=== PATIENT | male | born 1985 | race Two or more races ===

== ENCOUNTER 2017-06-20 21:04 | Emergency (ER) | payer SELFPAY ==
[2017-06-20] MEDS ORDERED: OXYCODONE-ACETAMINOPHEN 5-325 MG TABLET PO ONE (22:31)
[2017-06-20] MEDS ORDERED: ONDANSETRON 4 MG TAB.RAPDIS PO ONE (22:32)
[2017-06-20] MEDS ORDERED: LIDOCAINE 1%/EPINEPHRINE INJ 20 ML VIAL INJ ONE (22:32)
--- NOTE | 2017-06-20 23:06 | RADIOLOGY REPORT (SQ) ---
EXAM DESCRIPTION: HAND LEFT 3 VIEWS CLINICAL HISTORY: 32 years Male, deep laceration/puncture COMPARISON: None. Findings: Soft tissue swelling/injury. No radiopaque foreign body. Bones, joints, and soft tissues of the HAND LEFT 3 VIEWS appear otherwise intact. IMPRESSION: Swelling.
--- NOTE | 2017-06-21 00:26 | ER Document Report ---
ED Wound - General Chief Complaint: Laceration Stated Complaint: LACERATION LEFT HAND Time Seen by Provider: 06/20/17 22:11 Notes: Patient is a 32-year-old male who presents the emergency department this evening with complaints of lacerations to his left hand. Patient reports that he was trying to use scissors when the scissors slipped and stabbed/lacerated his hand. There are 2 lacerations located on the palmar surface of the left hand. There is no active bleeding. Patient reports that his last tetanus shot was in 2017. Patient denies any past medical history. TRAVEL OUTSIDE OF THE [place] IN LAST 30 DAYS: No - Related Data Allergies/Adverse Reactions: No Known Allergies Allergy (Unverified 06/20/17 21:06) Past Medical History - General Information source: Patient - Social History Smoking Status: Never Smoker Frequency of alcohol use: None Drug Abuse: None Family History: Reviewed & Not Pertinent Patient has suicidal ideation: No Patient has homicidal ideation: No - Medical History Medical History: Negative Renal/ Medical History: Denies: Hx Peritoneal Dialysis Past Surgical History: Reports: None Review of Systems - Review of Systems Constitutional: No symptoms reported EENT: No symptoms reported Cardiovascular: No symptoms reported Respiratory: No symptoms reported Gastrointestinal: No symptoms reported Genitourinary: No symptoms reported Male Genitourinary: No symptoms reported Musculoskeletal: No symptoms reported Skin: See HPI Hematologic/Lymphatic: No symptoms reported Neurological/Psychological: No symptoms reported Physical Exam - Vital signs Vitals: Temp Pulse Resp BP Pulse Ox 99.4 F 67 16 126/92 H 98 06/20/17 21:18 06/20/17 21:18 06/20/17 21:18 06/20/17 21:18 06/20/17 21:18 - Notes Notes: PHYSICAL EXAMINATION: GENERAL: Well-appearing, well-nourished and in no acute distress. HEAD: Atraumatic, normocephalic. EYES: Pupils equal round and reactive to light, extraocular movements intact, sclera anicteric, conjunctiva are normal. ENT: Nares patent, oropharynx clear without exudates. Moist mucous membranes. NECK: Normal range of motion, supple without lymphadenopathy LUNGS: Breath sounds clear to auscultation bilaterally and equal. No wheezes rales or rhonchi. HEART: Regular rate and rhythm without murmurs ABDOMEN: Soft, nontender, nondistended abdomen. No guarding, no rebound. No masses appreciated. Musculoskeletal: Normal range of motion, no pitting or edema. No cyanosis. NEUROLOGICAL: Cranial nerves grossly intact. Normal speech, normal gait. Normal sensory, motor exams, normal distal to injury and capillary refill less than 3 seconds. PSYCH: Normal mood, normal affect. SKIN: Warm, Dry, normal turgor, no rashes or lesions noted. - Skin Skin Temperature: Warm Skin Moisture: Dry Skin Color: Normal Skin irregularity: Laceration - Left hand, 2cm laceration near center of palm, 2cm laceration to just distal to wrist. Course - Vital Signs Vital signs: Temp Pulse Resp BP Pulse Ox 97.8 F 68 16 126/94 H 100 06/21/17 00:59 06/21/17 00:59 06/21/17 00:59 06/21/17 00:59 06/21/17 00:59 Procedures - Laceration/Wound Repair Left Hand Time completed: 00:30 Wound length (cm): 2 Wound's Depth, Shape: Superficial Laceration pre-procedure: Sterile drapes applied, Shur-Clens applied Anesthetic type: 1% Lidocaine w/epi Volume Anesthetic (mLs): 2 Wound explored: Clean Irrigated w/ Saline (mLs): 30 Wound Debrided: Minimal Wound Repaired With: Sutures Suture Size/Type: 4:0 Number of Sutures: 5 Layer Closure?: No Post-procedure wound care: Sterile dressing applied Post-procedure NV exam normal: Yes Complications: No Left Hand #2 Time completed: 00:40 Wound length (cm): 3 Wound's Depth, Shape: Superficial Laceration pre-procedure: Sterile PPE donned, Betadine prep applied, Chloraprep applied, Sterile drapes applied, Shur-Clens applied, Other Anesthetic type: 1% Lidocaine w/epi Volume Anesthetic (mLs): 2 Wound explored: Clean Irrigated w/ Saline (mLs): 30 Wound Repaired With: Sutures Suture Size/Type: 4:0 Number of Sutures: 6 Post-procedure wound care: Sterile dressing applied Post-procedure NV exam normal: Yes Complications: No Discharge - Discharge Clinical Impression: Laceration Condition: Stable Disposition: HOME, SELF-CARE Instructions: Antibiotic Ointment Protection ([facility]), Laceration Care ([facility]), Oral Narcotic Medication ([facility]), Prophylactic Antibiotic ([facility]), Soap Cleansing ( [facility]) Additional Instructions: Laceration Care Your laceration has been sutured to keep the skin edges aligned during healing. The time of suture removal depends on the nature and location of your cut. Please follow the care instructions the doctor has outlined for you and return for further care, according to the schedule you've been given. Keep the wound and dressing clean. Unless you were told otherwise, you may shower daily, blotting the wound dry with a clean, unused towel. At other times , If the dressing gets wet or blood soaked, remove it and blot the wound dry, then reapply a new dressing. Unless you were instructed otherwise, dressings should be changed at least daily. If any signs of infection occur (swelling, redness, increasing tenderness, red streaks, tender lumps in the armpit or groin above the laceration, or fever) , see the doctor immediately. Please return for suture removal in approximately 10 days. You may be seen at urgent care, your primary care for the emergency department with a suture removal. Prescriptions: Cephalexin Monohydrate [Keflex 500 mg Capsule] 500 mg PO Q6H 5 Days #24 capsule
[2017-06-21] MEDS ORDERED: HYDROCODONE/ACETAMINOPHEN 5-325 MG (6 TAB/ER DISP) PO PRN (00:27)
[2017-06-21 01:00] VITALS: BP 126/94
== END 2017-06-21 01:00 | disposition home or self-care (01) ==
LOC: ER 21:04
PROC: 0HQGXZZ Repair Left Hand Skin, External Approach (ICD-10-PCS; principal; 2017-06-20)
DX: S61.412A Laceration without foreign body of left hand, initial encounter (principal); W27.2XXA Contact with scissors, initial encounter
CPT/HCPCS: 99283; 73130; 12002; S0119; J3490

== ENCOUNTER 2018-02-20 08:32 | Emergency (ER) | payer MEDICAID ==
[2018-02-20] MEDS ORDERED: LIDOCAINE 1% INJ-PF (10 MG/ML) 30 ML SDV NEB ONE (08:58)
[2018-02-20] MEDS ORDERED: IPRATROPIUM/ALBUTEROL 0.5-2.5 MG/3 ML AMPUL NEB ONE (08:58)
[2018-02-20] MEDS ORDERED: ACETAMINOPHEN 325 MG TABLET PO ONE (08:58)
[2018-02-20] MEDS ORDERED: IBUPROFEN 600 MG TABLET PO ONE (08:58)
--- NOTE | 2018-02-20 09:17 | RADIOLOGY REPORT (SQ) ---
EXAM DESCRIPTION: CHEST 2 VIEWS COMPLETED DATE/TIME: 02/20/2018 9:09 am REASON FOR STUDY: sob COMPARISON: None. TECHNIQUE: Frontal and lateral radiographic views of the chest acquired. NUMBER OF VIEWS: Two view. LIMITATIONS: None. FINDINGS: LUNGS AND PLEURA: No opacities, masses or pneumothorax. No pleural effusion. MEDIASTINUM AND HILAR STRUCTURES: No masses or contour abnormalities. HEART AND VASCULAR STRUCTURES: Heart normal size. No evidence for failure. BONES: No acute findings. HARDWARE: None in the chest. OTHER: No other significant finding. IMPRESSION: NO SIGNIFICANT RADIOGRAPHIC FINDING IN THE CHEST. TECHNICAL DOCUMENTATION: JOB ID: [id number] [employer]- All Rights Reserved Reading location - IP/workstation name: [email or web address]
[2018-02-20] MEDS ORDERED: ALBUTEROL SULFATE HFA (90 MCG/PUFF) 8 GM MDI (1 MDI/ER DISP) IH ONE (09:25)
--- NOTE | 2018-02-20 10:37 | ER Document Report ---
ED General - General Chief Complaint: Flu Symptoms Stated Complaint: COUGH/SORE THROAT/HEADACHE Time Seen by Provider: 02/20/18 08:57 TRAVEL OUTSIDE OF THE [place] IN LAST 30 DAYS: No - HPI Patient complains to provider of: Cough sore throat headache feeling unwell Notes: Patient coming in for the above-stated symptoms ongoing for greater than. Patient states he is unaware of any sick contacts that he has been around. Patient states he does smoke however spelled hard to smoke due to the coughing and shortness of breath patient denies any past medical history denies any aller gies to medications. Patient otherwise looks to be in no obvious distress upon my evaluation. Patient states he did not receive a flu shot this year. - Related Data Allergies/Adverse Reactions: No Known Allergies Allergy (Verified 02/20/18 08:34) Past Medical History - Social History Smoking Status: Current Every Day Smoker Chew tobacco use (# tins/day): No Frequency of alcohol use: None Drug Abuse: None Family History: Reviewed & Not Pertinent Patient has suicidal ideation: No Patient has homicidal ideation: No Renal/ Medical History: Denies: Hx Peritoneal Dialysis Review of Systems - Review of Systems Constitutional: Other - Cough sore throat feeling unwell EENT: No symptoms reported Cardiovascular: No symptoms reported Respiratory: No symptoms reported Gastrointestinal: No symptoms reported Genitourinary: No symptoms reported Male Genitourinary: No symptoms reported Musculoskeletal: No symptoms reported Skin: No symptoms reported Hematologic/Lymphatic: No symptoms reported Neurological/Psychological: No symptoms reported -: Yes All other systems reviewed and negative Physical Exam - Vital signs Vitals: Temp Pulse Resp BP Pulse Ox 99.4 F 89 16 120/60 100 02/20/18 08:35 02/20/18 08:35 02/20/18 08:35 02/20/18 08:35 02/20/18 08:35 Interpretation: Normal - General General appearance: Appears well, Alert - HEENT Head: Normocephalic, Atraumatic Eyes: Normal Conjunctiva: Normal Cornea: Normal Extraocular movements intact: Yes Eyelashes: Normal Pupils: PERRL Ears: Normal External canal: Normal Tympanic membrane: Normal Sinus: Normal Nasal: Normal Mouth/Lips: Normal Pharynx: Erythema Neck: Normal - Respiratory Respiratory status: No respiratory distress Chest status: Nontender Breath sounds: Normal Chest palpation: Normal - Cardiovascular Rhythm: Regular Heart sounds: Normal auscultation Murmur: No - Abdominal Inspection: Normal Distension: No distension Bowel sounds: Normal Tenderness: Nontender Organomegaly: No organomegaly - Back Back: Normal, Nontender - Extremities General upper extremity: Normal inspection, Nontender, Normal color, Normal ROM, Normal temperature General lower extremity: Normal inspection, Nontender, Normal color, Normal ROM, Normal temperature, Normal weight bearing. No: Mike's sign - Neurological Neuro grossly intact: Yes Cognition: Normal Orientation: AAOx4 Scott Coma Scale Eye Opening: Spontaneous Scott Coma Scale Verbal: Oriented [place] Coma Scale Motor: Obeys Commands Scott Coma Scale Total: 15 Speech: Normal Motor strength normal: LUE, RUE, LLE, RLE Sensory: Normal - Psychological Associated symptoms: Normal affect, Normal mood - Skin Skin Temperature: Warm Skin Moisture: Dry Skin Color: Normal Course - Re-evaluation Re-evalutation: 02/20/18 14:54 Because of erythema in the throat a strep swab was performed showing no signs strep pharyngitis. Patient feeling better after breathing treatment more likely patient has underlying viral etiology of his symptoms recommend Tylenol Motrin therapy recommended hydration patient will be discharged home follow-up primary care physician. - Vital Signs Vital signs: Temp Pulse Resp BP Pulse Ox 99.5 F 88 20 108/60 100 02/20/18 10:46 02/20/18 10:46 02/20/18 10:46 02/20/18 10:46 02/20/18 10:46 Discharge - Discharge Clinical Impression: Flu-like symptoms Condition: Good Disposition: HOME, SELF-CARE Instructions: Acetaminophen, Use of Mpbb-Aam-Feyriie Ibuprofen ([facility]), Influenza ([facility]) [id number] Additional Instructions: Your symptoms are consistent with a viral illness possibly the flu. Would recommend drinking plenty of fluids to stay well-hydrated follow-up with your primary care physician return to ER symptoms worsen. Recommend taking the Zofran or Phenergan as needed for any nausea or vomiting. Please use Tylenol and Motrin for pain control Please take the inhaler 2 puffs every 4 hours as needed for shortness of breath Prescriptions: Ondansetron [Zofran Odt 4 mg Tablet] 1 - 2 tab PO Q4H PRN #30 tab.rapdis PRN Reason: For Nausea/Vomiting Promethazine HCl [Phenergan 25 mg Tablet] 25 mg PO Q6 #30 tablet Forms: Smoking Cessation Education, Return to Work
[2018-02-20 10:47] VITALS: BP 108/60
== END 2018-02-20 10:47 | disposition home or self-care (01) ==
LOC: ER 08:32
DX: R05 Cough (principal); R51 Headache; J02.9 Acute pharyngitis, unspecified; F17.200 Nicotine dependence, unspecified, uncomplicated
CPT/HCPCS: 94640 ×2; 99284; 87070; 87880; 71046; J3490 ×4; J7620

== ENCOUNTER 2018-12-23 06:42 | Emergency (ER) | payer MEDICAID, OTHER ==
--- NOTE | 2018-12-23 09:24 | ER Document Report ---
ED General - General Chief Complaint: Productive Cough Stated Complaint: FLU SYMPTOMS Time Seen by Provider: 12/23/18 08:16 Primary Care Provider: LUTHER SEWELL MD [Primary Care Provider] - Follow up as needed Mode of Arrival: Ambulatory Information source: Patient TRAVEL OUTSIDE OF THE [place] IN LAST 30 DAYS: No - HPI Notes: Patient presents with cough cold and congestion for 2 to 3 days. He states he had no contact at work with similar symptoms. He states he also has generalized body aches. These body aches are mild to moderate. They are worse with movement and better with rest. They are a crampy sensation that radiates throughout his body. They have been intermittent. No vomiting or diarrhea. No rashes. - Related Data Allergies/Adverse Reactions: No Known Allergies Allergy (Verified 02/20/18 08:34) Past Medical History - General Information source: Patient - Social History Smoking Status: Current Every Day Smoker Frequency of alcohol use: None Drug Abuse: None Family History: Reviewed & Not Pertinent Patient has suicidal ideation: No Patient has homicidal ideation: No Renal/ Medical History: Denies: Hx Peritoneal Dialysis Review of Systems - Review of Systems Constitutional: Chills, Fever, Malaise Cardiovascular: denies: Chest pain, Palpitations Respiratory: Cough. denies: Short of breath Physical Exam - Vital signs Vitals: Temp Pulse Resp BP Pulse Ox 97.5 F 56 L 20 116/82 100 12/23/18 06:48 12/23/18 06:48 12/23/18 06:48 12/23/18 06:48 12/23/18 06:48 Interpretation: Normal - General General appearance: Appears well, Alert In distress: None - HEENT Head: Normocephalic, Atraumatic Eyes: Normal Pupils: PERRL - Respiratory Respiratory status: No respiratory distress Chest status: Nontender Breath sounds: Normal Chest palpation: Normal - Cardiovascular Rhythm: Regular Heart sounds: Normal auscultation Murmur: No - Psychological Associated symptoms: Normal affect, Normal mood - Skin Skin Temperature: Warm Skin Moisture: Dry Skin Color: Normal Course - Vital Signs Vital signs: Temp Pulse Resp BP Pulse Ox 97.5 F 56 L 20 116/82 100 12/23/18 06:48 12/23/18 06:48 12/23/18 06:48 12/23/18 06:48 12/23/18 06:48 Discharge - Discharge Clinical Impression: URI (upper respiratory infection) Qualifiers: URI type: unspecified URI Qualified Code(s): J06.9 - Acute upper respiratory infection, unspecified Condition: Stable Disposition: HOME, SELF-CARE Instructions: Upper Respiratory Illness ([facility]) Additional Instructions: Please wait another 24 to 48 hours before filling antibiotic. Your symptoms are most likely caused by a virus that your body will fight off on its own. For the next 24 to 48 hours increase fluids and use Tylenol and Motrin. If after 24 to 48 hours you are not feeling better or if symptoms worsen before then then please fill the antibiotic and start taking as directed. Prescriptions: Azithromycin [Zithromax 250 mg Tablet] 250 mg PO ASDIR PRN #6 tablet PRN Reason: Forms: Return to Work Referrals: LUTHER SEWELL MD [Primary Care Provider] - Follow up as needed
[2018-12-23 09:55] VITALS: BP 118/81
== END 2018-12-23 09:59 | disposition home or self-care (01) ==
LOC: ER 06:42
DX: J06.9 Acute upper respiratory infection, unspecified (principal); R05 Cough; R52 Pain, unspecified; R50.9 Fever, unspecified; R53.81 Other malaise; F17.200 Nicotine dependence, unspecified, uncomplicated
CPT/HCPCS: 99283

== ENCOUNTER 2019-03-24 06:51 | Emergency (ER) | payer SELFPAY ==
[2019-03-24 07:03] VITALS: BP 135/65
--- NOTE | 2019-03-24 07:27 | ER Document Report ---
ED General - General Chief Complaint: Chest Congestion Stated Complaint: COUGH/CONGESTION Time Seen by Provider: 03/24/19 07:14 Primary Care Provider: LUTHER SEWELL MD [Primary Care Provider] - Follow up as needed Mode of Arrival: Ambulatory Information source: Patient TRAVEL OUTSIDE OF THE [place] IN LAST 30 DAYS: No - HPI Notes: Patient presents with headaches coughing and congestion for several days. He is a smoker. Patient states the headache is pounding and migrates from the left side to the right side. It does radiate around his head. It is been moderate to severe. It is worse with exertion and better with rest. It is also worse with coughing. He has had no vomiting or diarrhea. No rashes. He has not noticed any fevers. He has had some chills. Headache is been intermittent. - Related Data Allergies/Adverse Reactions: No Known Allergies Allergy (Verified 03/24/19 06:57) Past Medical History - General Information source: Patient - Social History Smoking Status: Current Every Day Smoker Frequency of alcohol use: None Drug Abuse: None Family History: Reviewed & Not Pertinent Patient has suicidal ideation: No Patient has homicidal ideation: No Renal/ Medical History: Denies: Hx Peritoneal Dialysis Review of Systems - Review of Systems Constitutional: Chills, Malaise EENT: Nose congestion, Nose discharge Respiratory: Cough, Wheezing -: Yes All other systems reviewed and negative Physical Exam - Vital signs Vitals: Temp Pulse Resp BP Pulse Ox 97.8 F 55 L 16 135/65 H 100 03/24/19 07:01 03/24/19 07:01 03/24/19 07:01 03/24/19 07:01 03/24/19 07:01 Interpretation: Normal - General General appearance: Appears well, Alert - HEENT Head: Normocephalic, Atraumatic Eyes: Normal Pupils: PERRL - Respiratory Respiratory status: No respiratory distress Chest status: Nontender Breath sounds: Rhonchi - All wolfe Chest palpation: Normal - Cardiovascular Rhythm: Regular Heart sounds: Normal auscultation Murmur: No - Abdominal Inspection: Normal Distension: No distension Bowel sounds: Normal Tenderness: Nontender Organomegaly: No organomegaly - Back Back: Normal, Nontender - Extremities General upper extremity: Normal inspection, Nontender, Normal color, Normal ROM, Normal temperature General lower extremity: Normal inspection, Nontender, Normal color, Normal ROM, Normal temperature, Normal weight bearing. No: Mike's sign - Neurological Neuro grossly intact: Yes Cognition: Normal Orientation: AAOx4 Scott Coma Scale Eye Opening: Spontaneous [place] Coma Scale Verbal: Oriented [place] Coma Scale Motor: Obeys Commands [place] Coma Scale Total: 15 Speech: Normal Motor strength normal: LUE, RUE, LLE, RLE Sensory: Normal - Psychological Associated symptoms: Normal affect, Normal mood - Skin Skin Temperature: Warm Skin Moisture: Dry Skin Color: Normal Course - Vital Signs Vital signs: Temp Pulse Resp BP Pulse Ox 97.8 F 55 L 16 135/65 H 100 03/24/19 07:01 03/24/19 07:01 03/24/19 07:01 03/24/19 07:01 03/24/19 07:01 - Diagnostic Test Radiology reviewed: Image reviewed, Reports reviewed Discharge - Discharge Clinical Impression: URI (upper respiratory infection) Qualifiers: URI type: unspecified URI Qualified Code(s): J06.9 - Acute upper respiratory infection, unspecified Condition: Stable Disposition: HOME, SELF-CARE Instructions: Upper Respiratory Illness ([facility]) Additional Instructions: Please call the [place] as soon as possible to arrange follow-up Prescriptions: Benzonatate [Tessalon Perles 100 mg Capsule] 200 mg PO Q8HP PRN 3 Days #18 capsule PRN Reason: Sulfamethoxazole/Trimethoprim [Bactrim Ds Tablet] 1 each PO BID 7 Days #14 tablet Albuterol Sulfate [Proair Digihaler] 90 mcg IH Q4 PRN #1 aer.pw.bas PRN Reason: Forms: Return to Work Referrals: [facility] [Provider Group] - Follow up as needed
--- NOTE | 2019-03-24 07:53 | RADIOLOGY REPORT (SQ) ---
EXAM DESCRIPTION: XR CHEST 2 VIEWS COMPLETED DATE/TME: 03/24/2019 00:00 CLINICAL HISTORY: 34 years, Male, CONGESTION COMPARISON: 02/20/18 NUMBER OF VIEWS: Two TECHNIQUE: Two views of the chest LIMITATIONS: None. FINDINGS: The lungs are clear. The heart is normal in size. There is no pneumothorax or pleural effusion. Bones are unremarkable. IMPRESSION: No acute cardiopulmonary abnormality. copyright 2010 [employer]- All Rights Reserved
== END 2019-03-24 07:36 | disposition home or self-care (01) ==
LOC: ER 06:51
DX: J06.9 Acute upper respiratory infection, unspecified (principal); R05 Cough; R51 Headache; R68.83 Chills (without fever); R53.81 Other malaise; R06.2 Wheezing; R09.89 Other specified symptoms and signs involving the circulatory and respiratory systems; R09.81 Nasal congestion; F17.200 Nicotine dependence, unspecified, uncomplicated
CPT/HCPCS: 71046; 99283